=== PATIENT | male | born 1995 | race Caucasian/White ===

== ENCOUNTER 2017-09-29 00:03 | Emergency (ER) | payer SELFPAY, OTHER | END 2017-09-29 01:29 | disposition home or self-care (01) | LOC: M ED 00:03 | DX: S09.90XA Unspecified injury of head, initial encounter (principal); Y04.8XXA Assault by other bodily force, initial encounter; Y92.138 Other place on military base as the place of occurrence of the external cause; F17.210 Nicotine dependence, cigarettes, uncomplicated | CPT/HCPCS: 99281 ==